=== PATIENT | male | born 1980 | race Caucasian/White ===

== ENCOUNTER 2022-01-06 05:52 | Day surgery (SDC) | payer OTHER ==
[2021-12-29 11:47] VITALS: BMI 26.6
[2022-01-06] MEDS ORDERED: BUPIVACAINE HCL/EPINEPHRINE/PF 30 ML VIAL IJ ONE (07:04)
[2022-01-06] MEDS ORDERED: VANCOMYCIN 1,000 MG VIAL (RESTRICTED TO ID ONLY) ONE (07:04)
[2022-01-06] MEDS ORDERED: EPINEPHrine 1:1,000 1,000 MCG/ML ML ONE (07:05)
[2022-01-06] MEDS ORDERED: fentaNYL CITRATE 250 MCG/5 ML VIAL ONE (07:09)
[2022-01-06] MEDS ORDERED: PROPOFOL 20 ML ONE ×3 (07:10→09:12)
[2022-01-06] MEDS ORDERED: MIDAZOLAM HCL 2 MG/2 ML SINGLE DOSE VIAL ONE ×4 (07:10→10:44)
[2022-01-06] MEDS ORDERED: BUPIVACAINE LIPOSOME/PF (EXPAREL) 266 MG/20 ML VIAL ONE (07:34)
[2022-01-06] MEDS ORDERED: BUPIVACAINE HCL/PF 0.5% (5 MG/ML) 30 ML VIAL IJ ONE (07:34)
[2022-01-06] MEDS ORDERED: BUPIVACAINE HCL 50 ML ONE (07:58)
[2022-01-06] MEDS ORDERED: ONDANSETRON 4 MG/2 ML VIAL ONE (09:50)
[2022-01-06] MEDS ORDERED: ceFAZolin SODIUM 1 GM VIAL ONE (09:50)
[2022-01-06] MEDS ORDERED: TRANEXAMIC ACID 1000 MG/10 ML VIAL ONE (09:50)
[2022-01-06] MEDS ORDERED: DEXAMETHASONE SOD PHOSPHATE 4 MG/1 ML VIAL ONE (09:50)
[2022-01-06] MEDS ORDERED: KETOROLAC TROMETHAMINE 30 MG/1 ML VIAL ONE (09:50)
[2022-01-06] MEDS ORDERED: ONDANSETRON 4 MG/2 ML VIAL IVPUSH PRN (11:05)
[2022-01-06] MEDS ORDERED: oxyCODONE HCL 5 MG TABLET PO PRN (11:06)
[2022-01-06] MEDS ORDERED: LACTATED RINGERS SOLUTION 1,000 ML IV SCH (11:15)
[2022-01-06 14:24] VITALS: TEMP 97
[2022-01-06 14:32] VITALS: BP 116/72; PULSE 58
== END 2022-01-06 13:50 | disposition home or self-care (01) ==
LOC: FASU 05:52
PROVIDERS: ATTEND Orthopaedic Surgery
PROC: 0SBD4ZZ Excision of Left Knee Joint, Percutaneous Endoscopic Approach (ICD-10-PCS; 2022-01-06)
PROC: 0SBD4ZZ Excision of Left Knee Joint, Percutaneous Endoscopic Approach (ICD-10-PCS; principal; 2022-01-06 08:30)
PROC: 0SCD4ZZ Extirpation of Matter from Left Knee Joint, Percutaneous Endoscopic Approach (ICD-10-PCS; 2022-01-06 08:30)
DX: M17.12 Unilateral primary osteoarthritis, left knee (principal); M21.162 Varus deformity, not elsewhere classified, left knee; M23.42 Loose body in knee, left knee; M22.42 Chondromalacia patellae, left knee; M23.201 Derangement of unspecified lateral meniscus due to old tear or injury, left knee
CPT/HCPCS: 94760; 97116-GP

== ENCOUNTER 2023-01-13 08:36 | Emergency (ER) | payer OTHER ==
[2023-01-13 08:45] VITALS: BP 116/78; PULSE 82; RESP 18; TEMP 99.1; BMI 28.1
[2023-01-13] MEDS ORDERED: IBUPROFEN 400 MG TABLET (FP) PO ONE ×2 (08:50→09:04)
== END 2023-01-13 11:14 | disposition home or self-care (01) ==
LOC: FER 08:36
DX: J02.9 Acute pharyngitis, unspecified (principal)
CPT/HCPCS: 0241U-QW; 87651; 99283-25